=== PATIENT | female | born 1945 | race Caucasian/White ===

== ENCOUNTER → 2017-06-25 | Outpatient (CLI) | payer MEDICARE, BC ==
[2017-06-24 11:19] VITALS: BMI 31.6
[2017-06-25 13:18] VITALS: BP 142/82; PULSE 65; RESP 16; TEMP 97.6
--- NOTE | 2017-06-25 13:50 | P.CONS ---
History of Present Illness - Reason for Consult Consult date: 06/25/17 - History of Present Illness This is 72 years old female with a chronic history of severe low back pain, pain is constant localized in the low back area, and the lumbar laminectomy and fusion surgery done 2 years ago , he reported that she had excellent pain relief after the surgery for a few months and then later on she started having severe back pain above the area where she had her fusion surgery, the pain is constant and increased with any activity, interfering with her quality of life, also patient has some numbness and tingling sensation in the right groin area, denies any fever or night sweats which denies any change in the bowel movement or urination and no motor or sensory deficit Past Medical History Past Medical History: Asthma, CVA/TIA, GERD/Reflux, Hyperlipidemia, Hypertension , Osteoarthritis (OA) Additional Past Medical History / Comment(s): varicose veins, migraines, TIA 2004, bruises easily, heart murmer, hiatal hernia, History of Any Multi-Drug Resistant Organisms: None Reported Past Surgical History: Back Surgery, Cholecystectomy, Hysterectomy, Joint Replacement, Orthopedic Surgery, Tonsillectomy Additional Past Surgical History / Comment(s): laminectomy- than had blood clot removed from spine, fusion with hardware, rt hip replacement, jodee cataracts, left knee surgery Past Anesthesia/Blood Transfusion Reactions: Family History of Problems w/ Anesthesia, Motion Sickness, Postoperative Nausea & Vomiting (PONV) Additional Past Anesthesia/Blood Transfusion Reaction / Comm: severe PONV and low BP, mother also had PONV, diff IV starts Past Psychological History: Anxiety, Panic Disorder Additional Psychological History / Comment(s): "high anxiety" Smoking Status: Never smoker Past Alcohol Use History: None Reported Past Drug Use History: None Reported - Past Family History Brother(s) Family Medical History: Cancer Father Family Medical History: Cancer Additional Family Medical History / Comment(s): father of lung cancer. Mother Family Medical History: Congestive Heart Failure (CHF) Additional Family Medical History / Comment(s): Mother of CHF. Medications and Allergies Home Medications Medication Instructions Recorded Confirmed Type amLODIPine BESYLATE [Norvasc] 10 mg PO DAILY 02/13/15 06/25/17 History Cyanocobalamin [Vitamin B-12] 500 mcg PO DAILY 02/22/15 06/25/17 History ALPRAZolam [Xanax] 0.5 mg PO TID PRN 06/24/17 06/25/17 History Lisinopril [Prinivil] 20 mg PO DAILY 06/24/17 06/25/17 History Allergies Allergy/AdvReac Type Severity Reaction Status Date / Time acetaminophen [From Vicodin] Allergy Unknown Verified 02/22/15 17:13 hydrocodone bitartrate Allergy Unknown Verified 02/22/15 17:13 [From Vicodin] latex Allergy Rash/Hives Verified 06/24/17 11:07 simvastatin Allergy SOB, face Verified 02/22/15 17:13 swelled hydromorphone HCl AdvReac Hallucinations, Verified 02/22/15 17:21 [From Dilaudid] confusion adhesive tape Allergy skin peeled Uncoded 02/22/15 06:46 Physical Exam Vitals: Vital Signs Temp Pulse Resp BP 06/25/17 13:05 97.6 F 65 16 142/82 Social history : not smoker , NO ETOH , NO Illegal drugs use Review of Systems : 1- Constitutional : no chills , no fever , no night sweats , 2- Ears : no ear discharge , no change in hearing 3-Nose, Mouth ,Throat ; no bleeding gums, no sore throat , no epistaxis , 4-Cardiovascular : Denies chest pain, , no orthopnea , no palpitation 5-Respiratory : Denies cough , no dyspnea , no hemoptysis 6-Gastrointestinal :, no change in bowel habits , no coffee- ground emesis . 7-Genitourinary : No hematuria , no discharge , no incontinence, 8-Musculoskeletal : No gait dysfunction , report low back pain , 9- Neurological : no ataxia , no tremor , no sezure , 10-Psychatric , no suicidal ideation no hallucination 11- Endocrine : no cold intolerence , no polyuria , no polydypsia , 12-Hematologic : no easy bleeding , no easy brusing , 13-Allergic / immunology : no angioedema , no wheezing ,no allergic rhinitis 14-Integumentary : no brttle nails , no change hair / nails , no foot/leg ulcers . Physical Examinations : 1-Constitutional : Cooperative , not in acute distress . 2-HEENT : nech ; supple , no Lymphadenopathy , no Thyromegaly , :eyes , no icterus, no photophobia . ENT : , normal oropharynx , no Thrush 3- Respiratory : Chest clear to auscultations Bilaterally , no wheezing . 4- Cardiovascular : regular rate and rhythem , S1 , S2 , no S3 , no S4. 5- Gastrointestinal: abdomen soft no tenderness , no organomegally . 6- Genitourinary : Defferred . 7-Integumentary : No cellulitis , no ulcers , normal skin turgor , no cyanotic . 8- neurologic : Cranial nerve II to XII intact , no focal neurological deffecit 9-psychatric : alert , oriented X 3 , appropriate affect , intact judgment and insight . 10-Lymphatic : no Lymphadenopathy. 11- musculoskeltal: Lumber spine moter stegnth lower extremities ,thigh and legs 5/5 Right side , 5/5 Left side deep tendon reflexes : normal Knee Jerk , normal ankle Jerk positive lumber facet Loading Test Range of motion of the lumbar spine Flexion 30 degrees, extension 10 degrees strait leg raising test , positive at 45 degree Fabere test positive RT and positive LT . Results Labs: She had MRI of the lumbar spine and the [facility]= report not available Assessment and Plan Assessment: Assessment and plan= chronic low back pain secondary to lumbar degenerative disc disease , lumbar spondylosis with lumbar facet arthropathy , Currently patient complaining of severe back pain above the area where she had a fusion, she had a fusion from L2 to S1 , she will be in good candidate to have diagnostic medial branch block T12-L1 and L1-2 bilaterally and if she had a good result then we will proceed with a radiofrequency ablation of the medial branch lumbar area, procedure risk and benefits and alternatives discussed with the patient and she agreed with proceeding, as the patient given prescription for Neurontin 100 mg twice a day Time with Patient: Greater than 30
== END | disposition home or self-care (01) ==
LOC: PNWHC3 12:55
PROVIDERS: ATTEND Specialist
DX: M51.36 Other intervertebral disc degeneration, lumbar region (principal); M47.816 Spondylosis without myelopathy or radiculopathy, lumbar region; M46.86 Other specified inflammatory spondylopathies, lumbar region; E78.5 Hyperlipidemia, unspecified; I10 Essential (primary) hypertension; K21.9 Gastro-esophageal reflux disease without esophagitis; M19.90 Unspecified osteoarthritis, unspecified site; F41.9 Anxiety disorder, unspecified; Z79.899 Other long term (current) drug therapy; Z88.5 Allergy status to narcotic agent; Z91.040 Latex allergy status; Z91.09 Other allergy status, other than to drugs and biological substances
CPT/HCPCS: 99211

== ENCOUNTER 2019-04-05 12:15 | Observation (INO) | payer MEDICARE, BC ==
[2019-04-05] MEDS ORDERED: ASPIRIN 81 MG PO STA (12:25)
[2019-04-05] MEDS ORDERED: NITROGLYCERIN OINT 1 INCH/GM PACKET TOPICAL STA (12:25)
--- NOTE | 2019-04-05 12:28 | ED ---
General Adult HPI - General Chief complaint: Chest Pain Stated complaint: Chest pain, SOB Time Seen by Provider: 04/05/19 12:19 Source: patient, EMS, RN notes reviewed Mode of arrival: EMS Limitations: physical limitation - History of Present Illness Initial comments: Patient is a pleasant 74-year-old female presenting to the emergency Department with complaints of chest discomfort. Onset of symptoms was around a half an hour ago. Patient was shopping. Patient states discomfort was severe. Discomfort felt dull in the chest without radiation. Patient did have associated dyspnea and sweating. There was also mild nausea. No history of similar symptoms previously. Patient is unclear if she was anxious and did take some Xanax. Symptoms have improved at this time and symptoms are only mild. No leg pain or leg swelling. - Related Data Home Medications Medication Instructions Recorded Confirmed ALPRAZolam [Xanax] 0.5 mg PO TID PRN 06/24/17 04/05/19 Lisinopril [Prinivil] 20 mg PO DAILY 06/24/17 04/05/19 Allergies Allergy/AdvReac Type Severity Reaction Status Date / Time acetaminophen [From Vicodin] Allergy Unknown Verified 04/05/19 12:51 hydrocodone bitartrate Allergy Unknown Verified 04/05/19 12:51 [From Vicodin] latex Allergy Rash/Hives Verified 04/05/19 12:51 simvastatin Allergy SOB, face Verified 04/05/19 12:51 swelled hydromorphone HCl AdvReac Hallucinations, Verified 04/05/19 12:51 [From Dilaudid] confusion adhesive tape Allergy Unknown skin peeled Uncoded 04/05/19 12:51 Review of Systems ROS Statement: Those systems with pertinent positive or pertinent negative responses have been documented in the HPI. ROS Other: All systems not noted in ROS Statement are negative. Constitutional: Denies: fever Eyes: Denies: eye pain ENT: Denies: ear pain Respiratory: Reports: dyspnea Cardiovascular: Reports: chest pain Endocrine: Denies: fatigue Gastrointestinal: Reports: nausea. Denies: abdominal pain Genitourinary: Denies: dysuria Musculoskeletal: Reports: other (Patient has chronic back pain that is unchanged.) Skin: Denies: rash Neurological: Denies: weakness Past Medical History Past Medical History: Asthma, CVA/TIA, GERD/Reflux, Hyperlipidemia, Hypertension, Osteoarthritis (OA) Additional Past Medical History / Comment(s): varicose veins, migraines, TIA 2003, bruises easily, heart murmer, hiatal hernia, History of Any Multi-Drug Resistant Organisms: None Reported Past Surgical History: Back Surgery, Cholecystectomy, Hysterectomy, Joint Replacement, Orthopedic Surgery, Tonsillectomy Additional Past Surgical History / Comment(s): laminectomy- than had blood clot removed from spine, fusion with hardware, rt hip replacement, jodee cataracts, left knee surgery Past Anesthesia/Blood Transfusion Reactions: Family History of Problems w/ Anesthesia, Motion Sickness, Postoperative Nausea & Vomiting (PONV) Additional Past Anesthesia/Blood Transfusion Reaction / Comment(s): severe PONV and low BP, mother also had PONV, diff IV starts Past Psychological History: Anxiety, Panic Disorder Smoking Status: Never smoker Past Alcohol Use History: None Reported Past Drug Use History: None Reported - Past Family History Brother(s) Family Medical History: Cancer Father Family Medical History: Cancer Additional Family Medical History / Comment(s): father of lung cancer. Mother Family Medical History: Congestive Heart Failure (CHF) Additional Family Medical History / Comment(s): Mother of CHF. General Exam Limitations: no limitations General appearance: alert, in no apparent distress Head exam: Present: atraumatic Eye exam: Present: normal appearance, PERRL ENT exam: Present: normal oropharynx Neck exam: Present: normal inspection Respiratory exam: Present: normal lung sounds bilaterally. Absent: chest wall tenderness Cardiovascular Exam: Present: regular rate, normal rhythm Expanded Peripheral pulses: 2+: Radial (R), Radial (L), Posterior Tibialis (R), Posterior Tibialis (L), Dorsalis Pedis (R), Dorsalis Pedis (L) GI/Abdominal exam: Present: soft. Absent: tenderness Extremities exam: Present: normal inspection. Absent: pedal edema, calf tenderness Neurological exam: Present: alert Psychiatric exam: Present: normal affect, normal mood Skin exam: Present: normal color Course Vital Signs 04/05/19 04/05/19 12:20 12:25 Temperature 97.4 F L Pulse Rate 95 Pulse Rate [ 86 Infant Babysitter ] Respiratory 18 Rate Blood Pressure 146/88 O2 Sat by Pulse 97 Oximetry - Reevaluation(s) Reevaluation #1: 04/05/19 12:26 Monitor strip by EMS shows a narrow complex tachycardia with a rate of 156. EKG Findings - EKG Comments: EKG Findings:: Normal sinus rhythm 79. AR 144. QRS 70. QT 354. QTC 405. Normal axis. Normal QRS. No acute ST change. Medical Decision Making - Medical Decision Making Patient reevaluated and resting comfortably in bed. Patient updated on results and plan. Case was discussed in detail with Dr. paula monet, covering for hospital call, who will admit. - Lab Data Result diagrams: 04/05/19 12:30 04/05/19 12:30 Lab Results 04/05/19 04/05/19 04/05/19 Range/Units 12:30 12:30 12:30 WBC 6.3 (3.8-10.6) k/uL RBC 4.35 (3.80-5.40) m/uL Hgb 13.6 (11.4-16.0) gm/dL Hct 41.6 (34.0-46.0) % MCV 95.6 (80.0-100.0) fL MCH 31.2 (25.0-35.0) pg MCHC 32.6 (31.0-37.0) g/dL RDW 14.1 (11.5-15.5) % Plt Count 217 (150-450) k/uL Neutrophils % 64 % Lymphocytes % 27 % Monocytes % 5 % Eosinophils % 1 % Basophils % 1 % Neutrophils # 4.1 (1.3-7.7) k/uL Lymphocytes # 1.7 (1.0-4.8) k/uL Monocytes # 0.3 (0-1.0) k/uL Eosinophils # 0.1 (0-0.7) k/uL Basophils # 0.0 (0-0.2) k/uL PT 9.6 (9.0-12.0) sec INR 0.9 (<1.2) APTT 22.6 (22.0-30.0) sec D-Dimer 0.42 (<0.60) mg/L FEU Sodium 142 (137-145) mmol/L Potassium 3.9 (3.5-5.1) mmol/L Chloride 113 H (98-107) mmol/L Carbon Dioxide 22 (22-30) mmol/L Anion Gap 7 mmol/L BUN 14 (7-17) mg/dL Creatinine 0.72 (0.52-1.04) mg/dL Est GFR (CKD-EPI)AfAm >90 (>60 ml/min/1.73 sqM) Est GFR (CKD-EPI)NonAf 82 (>60 ml/min/1.73 sqM) Glucose 107 H (74-99) mg/dL Calcium 9.5 (8.4-10.2) mg/dL Magnesium 2.0 (1.6-2.3) mg/dL Total Bilirubin 0.4 (0.2-1.3) mg/dL AST 17 (14-36) U/L ALT 19 (9-52) U/L Alkaline Phosphatase 56 (38-126) U/L Creatine Kinase 68 (30-135) U/L Troponin I (0.000-0.034) ng/mL NT-Pro-B Natriuret Pep pg/mL Total Protein 6.2 L (6.3-8.2) g/dL Albumin 3.8 (3.5-5.0) g/dL 04/05/19 04/05/19 Range/Units 12:30 12:30 WBC (3.8-10.6) k/uL RBC (3.80-5.40) m/uL Hgb (11.4-16.0) gm/dL Hct (34.0-46.0) % MCV (80.0-100.0) fL MCH (25.0-35.0) pg MCHC (31.0-37.0) g/dL RDW (11.5-15.5) % Plt Count (150-450) k/uL Neutrophils % % Lymphocytes % % Monocytes % % Eosinophils % % Basophils % % Neutrophils # (1.3-7.7) k/uL Lymphocytes # (1.0-4.8) k/uL Monocytes # (0-1.0) k/uL Eosinophils # (0-0.7) k/uL Basophils # (0-0.2) k/uL PT (9.0-12.0) sec INR (<1.2) APTT (22.0-30.0) sec D-Dimer (<0.60) mg/L FEU Sodium (137-145) mmol/L Potassium (3.5-5.1) mmol/L Chloride (98-107) mmol/L Carbon Dioxide (22-30) mmol/L Anion Gap mmol/L BUN (7-17) mg/dL Creatinine (0.52-1.04) mg/dL Est GFR (CKD-EPI)AfAm (>60 ml/min/1.73 sqM) Est GFR (CKD-EPI)NonAf (>60 ml/min/1.73 sqM) Glucose (74-99) mg/dL Calcium (8.4-10.2) mg/dL Magnesium (1.6-2.3) mg/dL Total Bilirubin (0.2-1.3) mg/dL AST (14-36) U/L ALT (9-52) U/L Alkaline Phosphatase (38-126) U/L Creatine Kinase (30-135) U/L Troponin I 0.013 (0.000-0.034) ng/mL NT-Pro-B Natriuret Pep 225 pg/mL Total Protein (6.3-8.2) g/dL Albumin (3.5-5.0) g/dL - Radiology Data Radiology results: image reviewed (Two-view chest x-ray shows partial intrathoracic stomach. Stable enlarged cardiac mediastinal silhouette. No acute process.) Disposition Clinical Impression: Chest pain Disposition: ADMITTED IP TO THIS HOSP Is patient prescribed a controlled substance at d/c from ED?: No Referrals: Nonstaff,Physician [Primary Care Provider] - 1-2 days Decision Time: 14:29
[2019-04-05 12:53] LABS: ALT 19 U/L (9-52); AST 17 U/L (14-36); African American GFR (CKD) >90 (>60 ml/min/1.73 sqM); Albumin 3.8 g/dL (3.5-5.0); Alkaline Phosphatase 56 U/L (38-126); Anion Gap 7 mmol/L; Blood Urea Nitrogen 14 mg/dL (7-17); Calcium 9.5 mg/dL (8.4-10.2); Carbon Dioxide 22 mmol/L (22-30); Chloride 113 mmol/L (98-107); Creatine Kinase 68 U/L (30-135); Glucose 107 mg/dL (74-99); Potassium 3.9 mmol/L (3.5-5.1); Sodium 142 mmol/L (137-145); Total Bilirubin 0.4 mg/dL (0.2-1.3); Total Protein 6.2 g/dL (6.3-8.2)
[2019-04-05 12:55] LABS: Basophils % (A) 1 %; Eosinophils # (A) 0.1 k/uL (0-0.7); Eosinophils % (A) 1 %; HCT 41.6 % (34.0-46.0); HGB 13.6 gm/dL (11.4-16.0); Lymphocytes # (A) 1.7 k/uL (1.0-4.8); Lymphocytes % (A) 27 %; MCH 31.2 pg (25.0-35.0); MCHC 32.6 g/dL (31.0-37.0); MCV 95.6 fL (80.0-100.0); Mean Platelet Volume 7.5; Monocytes # (A) 0.3 k/uL (0-1.0); Monocytes % (A) 5 %; Neutrophils # (A) 4.1 k/uL (1.3-7.7); Neutrophils % (A) 64 %; Platelet Count 217 k/uL (150-450); RBC 4.35 m/uL (3.80-5.40); RDW 14.1 % (11.5-15.5); WBC 6.3 k/uL (3.8-10.6)
[2019-04-05 12:56] LABS: D-Dimer 0.42 mg/L FEU (<0.60); INR 0.9 (<1.2); Partial Thromboplastin Time 22.6 sec (22.0-30.0); Prothrombin Time 9.6 sec (9.0-12.0)
--- NOTE | 2019-04-05 13:34 | XR ---
EXAMINATION TYPE: XR chest 2V DATE OF EXAM: 04/05/2019 COMPARISON: 02/24/2015 HISTORY: Shortness of breath TECHNIQUE: Frontal and lateral views of the chest are obtained. FINDINGS: There is no focal air space opacity, pleural effusion, or pneumothorax seen. Flattening o f the diaphragms on the lateral view may relate to underlying COPD. Correlate with pulmonary function tests. The cardiac silhouette size is again enlarged. There is a partial intrathoracic stomach note d. The osseous structures are intact. There is partial visualization of postsurgical change of the patricia mbar spine. 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 Stable enlarged cardiac mediastinal silhouette. No acute process.
[2019-04-05] MEDS ORDERED: NITROGLYCERIN SL TABS 0.4 MG TAB SUBLINGUAL PRN (14:30)
[2019-04-05] MEDS ORDERED: ALPRAZolam 0.5 MG TAB PO PRN (16:51)
[2019-04-05] MEDS ORDERED: ACETAMINOPHEN TAB 325 MG TAB PO PRN (16:52)
[2019-04-05] MEDS ORDERED: HYDROcodone/APAP 5-325MG 1 EACH TAB PO PRN (16:52)
[2019-04-05] MEDS ORDERED: NALOXONE 0.4 MG/ML 1 ML VIAL IV PRN (16:52)
--- NOTE | 2019-04-05 17:13 | P.HPIM ---
History of Present Illness H&P Date: 04/05/19 Chief Complaint: Chest pain 74-year-old female with PMH of anxiety presents the ED for chest tightness. Patient states that she was in a grocery store picking up milk around 9:30 AM when she started experiencing chest tightness. Chest tightness was associated with sweating and associated shortness of breath. Patient states that she grabbed some milk and was able to drive home. She also reports an nagging pain in her left upper extremity. Patient states that she took a Xanax 0.5 mg which did not help her symptoms. She also tried using an albuterol inhaler which did not help her symptoms. Symptoms got worse, prompting her to come to the emergency room. Patient reports a frontal headache that has been ongoing for the past 2 days. She denies any lower extremity edema, nausea or vomiting, fever or chills, cough, chest pain, changes in urination or bowel habits. No changes in appetite or weight. Patient denies any dizziness, numbness/weakness/tingling of the extremities. In the ED, her vital signs were stable. As per conversation with the ED, noted heart rate in the 150s by EMS. Coagulation panel was negative. D-dimer was negative. CMP showed chloride of 113, glucose 107. Troponin was 0.013 with EKG showing normal sinus rhythm. BNP was 225. Patient is admitted for chest pain, rule out acute coronary syndrome, cardiology is consulted. Review of Systems Pertinent positives and negatives as discussed in HPI, a complete review of systems was performed and all other systems are negative. Past Medical History Past Medical History: Asthma, CVA/TIA, GERD/Reflux, Hyperlipidemia, Hypertension, Osteoarthritis (OA) Additional Past Medical History / Comment(s): varicose veins, migraines, TIA 2003, bruises easily, heart murmer, hiatal hernia, History of Any Multi-Drug Resistant Organisms: None Reported Past Surgical History: Back Surgery, Cholecystectomy, Hysterectomy, Joint Replacement, Orthopedic Surgery, Tonsillectomy Additional Past Surgical History / Comment(s): laminectomy- than had blood clot removed from spine, fusion with hardware, rt hip replacement, jodee cataracts, left knee surgery Past Anesthesia/Blood Transfusion Reactions: Family History of Problems w/ Anesthesia, Motion Sickness, Postoperative Nausea & Vomiting (PONV) Additional Past Anesthesia/Blood Transfusion Reaction / Comment(s): severe PONV and low BP, mother also had PONV, diff IV starts Past Psychological History: Anxiety, Panic Disorder Smoking Status: Never smoker Past Alcohol Use History: None Reported Past Drug Use History: None Reported - Past Family History Brother(s) Family Medical History: Cancer Father Family Medical History: Cancer Additional Family Medical History / Comment(s): father of lung cancer. Mother Family Medical History: Congestive Heart Failure (CHF) Additional Family Medical History / Comment(s): Mother of CHF. Medications and Allergies Home Medications Medication Instructions Recorded Confirmed Type ALPRAZolam [Xanax] 0.5 mg PO TID PRN 06/24/17 04/05/19 History Lisinopril [Prinivil] 20 mg PO DAILY 06/24/17 04/05/19 History Allergies Allergy/AdvReac Type Severity Reaction Status Date / Time acetaminophen [From Vicodin] Allergy Unknown Verified 04/05/19 12:51 hydrocodone bitartrate Allergy Unknown Verified 04/05/19 12:51 [From Vicodin] latex Allergy Rash/Hives Verified 04/05/19 12:51 simvastatin Allergy SOB, face Verified 04/05/19 12:51 swelled hydromorphone HCl AdvReac Hallucinations, Verified 04/05/19 12:51 [From Dilaudid] confusion adhesive tape Allergy Unknown skin peeled Uncoded 04/05/19 12:51 Physical Exam Vitals: Vital Signs Temp Pulse Pulse Resp BP Pulse Ox 04/05/19 15:49 72 16 145/87 99 04/05/19 12:25 86 04/05/19 12:20 97.4 F L 95 18 146/88 97 Intake and Output 04/05/19 04/05/19 04/05/19 06:59 14:59 22:59 Other: Weight 88.451 kg General: [non toxic], [no distress], [appears at stated age] Derm: [warm], [dry] Head: [atraumatic], [normocephalic], [symmetric] Eyes: [EOMI], [no lid lag], [anicteric sclera] Mouth: [no lip lesion], [mucus membranes moist] Cardiovascular: [S1S2 reg], [no murmur], [positive DP pulse bilateral] Lungs: [CTA bilateral], [no rhonchi, no rales] , [no accessory muscle use] Abdominal: [soft], [ nontender to palpation], [no guarding], [no appreciable organomegaly] Ext: [no gross muscle atrophy], [no edema], [no contractures] Neuro: [ CN II-XI grossly intact], [no focal neuro deficits] Psych: [Alert], [oriented], [appropriate affect] Results CBC & Chem 7: 04/05/19 12:30 04/05/19 12:30 Labs: Abnormal Lab Results - Last 24 Hours (Table) 04/05/19 Range/Units 12:30 Chloride 113 H (98-107) mmol/L Glucose 107 H (74-99) mg/dL Total Protein 6.2 L (6.3-8.2) g/dL Thrombosis Risk Factor Assmnt - Choose All That Apply Any of the Below Risk Factors Present?: Yes Each Factor Represents 1 point: Obesity (BMI >25) Each Risk Factor Represents 3 Points: Age 75 years or older Thrombosis Risk Factor Assessment Total Risk Factor Score: 4 Thrombosis Risk Factor Assessment Level: Moderate Risk Assessment and Plan Assessment: Assessment and Plan Chest pain, rule out acute coronary syndrome Anxiety Hypertension Troponin is 0.013 with EKG showing normal sinus rhythm. Chest x-ray unremarkable. Patient with risk factors for ACS. Plans: Trend Trop/EKG to rule out acute coronary syndrome. Follow-up echocardiogram. Telemetry monitoring. Follow cardiology consultation. Plans: Xanax as needed for anxiety. BP 145/87. Plans: Continue lisinopril. Monitor vitals, adjust medications as necessary. Patient is admitted for chest pain, rule out acute coronary syndrome. Car diology has been consulted. Patient answered daughter Bethany decision-maker indicates that she can't make decisions for herself. Patient elects to be full code at this time. DVT prophylaxis: [SCD] Discussed with: [Patient] Anticipated discharge: [1-2 days] Anticipated discharge place: [Home] A total of [45] minutes was spent on the care of this complex patient more than 50% of the time was spent in counseling and care coordination.
[2019-04-05] MEDS: NITROGLYCERIN OINT 1 INCH/GM PACKET TOPICAL SCH (18:01)
[2019-04-06 02:31] LABS: Cholesterol 217 mg/dL (<200); HDL Cholesterol 47 mg/dL (40-60); LDL Cholesterol,Calculated 130 mg/dL (0-99); Triglycerides 199 mg/dL (<150)
[2019-04-06] MEDS: NITROGLYCERIN OINT 1 INCH/GM PACKET TOPICAL SCH ×2 (04:00→05:00)
[2019-04-06] MEDS ORDERED: AMINOPHYLLINE 500 MG/20 ML VIAL IV PRN (07:02)
[2019-04-06] MEDS ORDERED: CAFFEINE CITRATE 60 MG/3 ML VIAL IV PRN (07:02)
[2019-04-06] MEDS ORDERED: REGADENOSON 0.4 MG/5 ML SYRINGE IV ONE (08:00)
[2019-04-06 08:07] VITALS: RESP 18
--- NOTE | 2019-04-06 08:36 | CONS ---
CONSULTATION This is a 74-year-old lady admitted to the hospital yesterday. She does carry a diagnosis of hyperlipidemia and also hypertension. Apparently, she went some grocery shopping and felt some pressure in the chest and also had broke into a sweat, felt very concerned, anxious and came into the emergency room. After arrival, her symptoms have resolved. She is resting comfortably. The pain seemed to occur when she was doing some grocery shopping. She did not do much physical effort. However, she felt anxious and she never had pain like this before. There was an element of anxiety, but the pain definitely was of concern to her. She is resting comfortably without symptoms. She is pain free. Her 3 sets of troponins are normal. EKG does not reveal any acute changes. PAST MEDICAL HISTORY: Remarkable for hypertension, hyperlipidemia, osteoarthritis, question of TIA, bronchial asthma, gastroesophageal reflux disease. She is status post hysterectomy, cholecystectomy and some orthopedic surgery. MEDICATIONS: Medications at home include lisinopril 20 mg daily, Xanax 0.5 mg p.r.n. ALLERGIES: She is allergic to VICODIN and SIMVASTATIN and also DILAUDID. EKG revealed a sinus mechanism, no acute changes, nonspecific T-wave flattening noted. PHYSICAL EXAMINATION: On examination, blood pressure is 110/70, pulse rate is 68 per minute regular. HEENT unremarkable. Fundus was not examined by me. Neck is supple. No JVD. I do not hear a carotid bruit. There is no thyromegaly. Heart exam reveals S1, S2 heard normally. No significant murmurs. Lungs are clear. Abdomen is soft, nontender. Lower extremities reveal palpable pulses. No edema. Central nervous system is normal. IMPRESSION: 1. Chest pain syndrome, cannot exclude angina. 2. Hypertension. 3. Hyperlipidemia. RECOMMENDATION: I am recommending that we decrease the aspirin to 81 mg daily, initiate her on Lipitor. She is allergic only to SIMVASTATIN. We will try Lipitor 20 mg daily and perform a Lexiscan stress test today and if this is normal she can be discharged. Her last stress test was more than 5 years ago. I discussed my thoughts in detail with the patient. Thank you very much for the consult. MMODL / IJN: [id number] /
[2019-04-06] MEDS ORDERED: ASPIRIN 81 MG PO SCH (09:00)
[2019-04-06] MEDS ORDERED: LISINOPRIL 20 MG TAB PO SCH (09:00)
[2019-04-06] MEDS ORDERED: ASPIRIN 325 MG TAB PO SCH (09:00)
--- NOTE | 2019-04-06 10:52 | NM ---
EXAMINATION TYPE: NM stress lexiscan cardiolite DATE OF EXAM: 04/06/2019 COMPARISON: NONE HISTORY: Chest pain, shortness of breath, palpitations, however lipidemia, hypertension, and family h istory of coronary artery disease. TECHNIQUE: After the intravenous administration of 10.45 mCi Tc 99m Sestamibi - Cardiolite resting S PECT images acquired 55 minutes post injection. The patient received 0.4mg Lexiscan, 25.6+ mCi Tc 99m Sestamibi - Stress images obtained 40 minutes p ost injection FINDINGS: Review of stress and rest SPECT images demonstrates no distinct reversible abnormality. Small fixed defect in the inferior lateral wall in the distribution of the left circumflex coronary artery is see n without abnormal wall motion, therefore artifactual either related to breast attenuation or GI atte nuation. Gated analysis shows normal wall motion with an estimated left ventricular ejection fraction of 74 %. TID is within normal limits calculated at 1.19. IMPRESSION: No scintigraphic evidence for reversible ischemia.
[2019-04-06 12:03] VITALS: BP 142/87; PULSE 75; TEMP 97.7
--- NOTE | 2019-04-06 13:01 | P.DS ---
Providers Date of admission: 04/05/19 14:30 Expected date of discharge: 04/06/19 Attending physician: Garfield Diehl MD Consults: 04/05/19 14:30 Consult Physician Urgent Consulting Provider: Andra Faria Consult Reason/Comments: cp, also please review monitor strip from EMS. Do you want consulting provider notified?: Yes Primary care physician: Physician Nonstaff Hospital Course: 74-year-old female with PMH of anxiety presents the ED for chest tightness. Patient states that she was in a grocery store picking up milk around 9:30 AM when she started experiencing chest tightness. Chest tightness was associated with sweating and associated shortness of breath. Patient states that she grabbed some milk and was able to drive home. She also reports an nagging pain in her left upper extremity. Patient states that she took a Xanax 0.5 mg which did not help her symptoms. She also tried using an albuterol inhaler which did not help her symptoms. Symptoms got worse, prompting her to come to the emergency room. Patient reports a frontal headache that has been ongoing for the past 2 days. She denies any lower extremity edema, nausea or vomiting, fever or chills, cough, chest pain, changes in urination or bowel habits. No changes in appetite or weight. Patient denies any dizziness, numbness/weakness/tingling of the extremities. In the ED, her vital signs were stable. As per conversation with the ED, noted heart rate in the 150s by EMS. Coagulation panel was negative. D-dimer was negative. CMP showed chloride of 113, glucose 107. Troponin was 0.013 with EKG showing normal sinus rhythm. BNP was 225. Patient is admitted for chest pain, rule out acute coronary syndrome, cardiology is consulted. Troponin was 0.013, 0.025, 0.012 with EKG showing normal sinus rhythm. Chest x- ray was unremarkable. Cardiology was consulted and recommended Lexiscan. Lexiscan was negative. Patient was cleared for discharge from cardiology perspective if stress test was negative. Patient was seen and examined. No acute events overnight. Patient complains of some chronic lower back pain. States that she has tried all medications including [place] and CBD without much relief. She is also seen a pain specialist but recommended an injection in the lumbar spine, for which she refused. Patient denies any chest pain, shortness of breath or palpitations. No nausea or vomiting. No fever or chills. General: [non toxic], [no distress], [appears at stated age] Derm: [warm], [dry] Head: [atraumatic], [normocephalic], [symmetric] Eyes: [EOMI], [no lid lag], [anicteric sclera] Mouth: [no lip lesion], [mucus membranes moist] Cardiovascular: [S1S2 reg], [no murmur], [positive DP pulse bilateral] Lungs: [CTA bilateral], [no rhonchi, no rales] , [no accessory muscle use] Abdominal: [soft], [ nontender to palpation], [no guarding], [no appreciable organomegaly] Ext: [no gross muscle atrophy], [no edema], [no contractures] Neuro: [no focal neuro deficits] Psych: [Alert], [oriented], [appropriate affect] Assessment and Plan Chest pain, rule out acute coronary syndrome Anxiety Hypertension Troponin is 0.013, 0.025, 0.012 with EKG showing normal sinus rhythm. Chest x- ray unremarkable. ACS ruled out. Lexiscan negative. Plans: Telemetry monitoring. Follow cardiology consultation. Plans: Xanax as needed for anxiety. BP 142/87. Plans: Continue lisinopril. Monitor vitals, adjust medications as necessary. Patient is admitted for chest pain, ACS ruled out. Lexiscan negative. DC pending cardiology clearance. Pertinent Studies: Chest x-ray, Lexiscan Patient Condition at Discharge: Stable Plan - Discharge Summary Discharge Rx Participant: No New Discharge Prescriptions: New Atorvastatin [Lipitor] 20 mg PO HS #90 tab Aspirin 81 mg PO DAILY #30 chew Continue ALPRAZolam [Xanax] 0.5 mg PO TID PRN PRN Reason: Anxiety Lisinopril [Prinivil] 20 mg PO DAILY Discharge Medication List ALPRAZolam [Xanax] 0.5 mg PO TID PRN 06/24/17 [History] Lisinopril [Prinivil] 20 mg PO DAILY 06/24/17 [History] Aspirin 81 mg PO DAILY #30 chew 04/06/19 [Rx] Atorvastatin [Lipitor] 20 mg PO HS #90 tab 04/06/19 [Rx] Follow up Appointment(s)/Referral(s): Andra Faria MD [STAFF PHYSICIAN] - 2 Weeks Nonstaff,Physician [Primary Care Provider] - 1-2 days Activity/Diet/Wound Care/Special Instructions: Diet: Heart healthy Follow-up PCP within 1-2 days of discharge. Follow-up cardiology within 1 week of discharge. Take all medications as advised. Discharge Disposition: HOME SELF-CARE
--- NOTE | 2019-04-06 13:07 | ECHOF ---
Referral Reason:chest pain MEASUREMENTS -------- HEIGHT: 162.6 cm WEIGHT: 88.5 kg BP: 95/59 RVIDd: 2.7 cm (< 3.3) IVSd: 1.4 cm (0.6 - 1.1) LVIDd: 3.4 cm (3.9 - 5.3) LVPWd: 1.3 cm (0.6 - 1.1) IVSs: 1.6 cm LVIDs: 2.8 cm LVPWs: 1.6 cm LA Diam: 2.9 cm (2.7 - 3.8) LAESV Index (A-L): 26.69 ml/m Ao Diam: 2.9 cm (2.0 - 3.7) AV Cusp: 1.7 cm (1.5 - 2.6) MV EXCURSION: 12.755 mm (> 18.000) MV EF SLOPE: 68 mm/s (70 - 150) EPSS: 0.2 cm MV E Mitch: 0.72 m/s MV DecT: 186 ms MV A Mitch: 0.85 m/s MV E/A Ratio: 0.85 RAP: 5.00 mmHg RVSP: 30.70 mmHg FINDINGS -------- Sinus rhythm. This was a technically adequate study. The left ventricular size is normal. There is moderate concentric left ventricular hypertrophy. O verall left ventricular systolic function is normal with, an EF between 60 - 65 %. The right ventricle is normal in size. Normal LA size by volume 22+/-6 ml/m2. The right atrium is normal in size. Interatrial and interventricular septum intact. There is mild aortic valve sclerosis. Mild mitral regurgitation is present. Mild tricuspid regurgitation present. Right ventricular systolic pressure is normal at < 35 mmHg. There is no pulmonic regurgitation present. The aortic root size is normal. Normal inferior vena cava with normal inspiratory collapse consistent with estimated right atrial pre ssure of 5 mmHg. There is no pericardial effusion. CONCLUSIONS -------- 1. Sinus rhythm. 2. This was a technically adequate study. 3. The left ventricular size is normal. 4. There is moderate concentric left ventricular hypertrophy. 5. Overall left ventricular systolic function is normal with, an EF between 60 - 65 %. 6. The right ventricle is normal in size. 7. Normal LA size by volume 22+/-6 ml/m2. 8. The right atrium is normal in size. 9. Interatrial and interventricular septum intact. 10. There is mild aortic valve sclerosis. 11. Mild mitral regurgitation is present. 12. Mild tricuspid regurgitation present. 13. Right ventricular systolic pressure is normal at < 35 mmHg. 14. There is no pulmonic regurgitation present. 15. The aortic root size is normal. 16. Normal inferior vena cava with normal inspiratory collapse consistent with estimated right atrial pressure of 5 mmHg. 17. There is no pericardial effusion. REHAB MANAGER: Brenda Mendez RDCS
--- NOTE | 2019-04-06 14:51 | EST ---
EXERCISE STRESS AGE: 74 SEX: F HT: 5'4" WT: 195 PROTOCOL: Lexiscan Cardiolite Stress Test HEART RATE REST: 73 BLOOD PRESSURE REST: 137/70 MAXIMUM HEART RATE ACHIEVED: 94 MAXIMUM BLOOD PRESSURE: 122/60 85% MPHR: 122 100% MPHR: 144 INDICATIONS: Chest pain. CLINICAL INFORMATION: Baseline EKG revealed normal sinus rhythm without significant ST-T changes. Patient was administered Lexiscan as per protocol. She developed isolated PVCs. Heart rate changed from 73-94 beats per minute. Blood pressure changed from 137/70 to 122/60. EKG revealed minor nonspecific ST-segment changes. No evidence of any significant abnormalities were noted. By EKG criteria, this is unremarkable Lexiscan stress test with minor resting EKG changes. The nuclear scan results which are more pertinent will be reported by the radiologist. [place] / [place]: [id number] /
[2019-04-06] MEDS ORDERED: ATORVASTATIN 20 MG TAB PO SCH (21:00)
== END 2019-04-06 14:55 | disposition home or self-care (01) ==
LOC: EC 12:15 → 1SOBS 14:30
PROVIDERS: ADMIT Internal Medicine; ATTEND Internal Medicine
DX: R07.89 Other chest pain (principal); F41.9 Anxiety disorder, unspecified; R11.0 Nausea; R61 Generalized hyperhidrosis; F41.0 Panic disorder [episodic paroxysmal anxiety]; M79.602 Pain in left arm; K21.9 Gastro-esophageal reflux disease without esophagitis; J45.909 Unspecified asthma, uncomplicated; I10 Essential (primary) hypertension; E78.5 Hyperlipidemia, unspecified; M19.90 Unspecified osteoarthritis, unspecified site; K44.9 Diaphragmatic hernia without obstruction or gangrene; I83.90 Asymptomatic varicose veins of unspecified lower extremity; G43.909 Migraine, unspecified, not intractable, without status migrainosus; G89.29 Other chronic pain; M54.5 Low back pain; E66.9 Obesity, unspecified; Z68.33 Body mass index [BMI] 33.0-33.9, adult; Z79.899 Other long term (current) drug therapy; Z88.6 Allergy status to analgesic agent; Z91.040 Latex allergy status; Z88.5 Allergy status to narcotic agent; Z88.8 Allergy status to other drugs, medicaments and biological substances; Z91.048 Other nonmedicinal substance allergy status; Z90.710 Acquired absence of both cervix and uterus; Z90.49 Acquired absence of other specified parts of digestive tract; Z98.1 Arthrodesis status; Z96.641 Presence of right artificial hip joint; Z98.42 Cataract extraction status, left eye; Z98.41 Cataract extraction status, right eye; Z86.73 Personal history of transient ischemic attack (TIA), and cerebral infarction without residual deficits; Z80.1 Family history of malignant neoplasm of trachea, bronchus and lung; Z82.49 Family history of ischemic heart disease and other diseases of the circulatory system; Z80.9 Family history of malignant neoplasm, unspecified; Z84.89 Family history of other specified conditions
CPT/HCPCS: 99285; 36415; 93005; 93017; 93306; 85379; 83880; 80061; 80053; 82550; 83735; 84484 ×2; 85025; 85610; 85730; 71046; 78452; G0378 ×2; A9500; J2785